=== PATIENT | female | born 1960 | race Caucasian/White ===

== ENCOUNTER 2021-11-23 08:42 | Day surgery (SDC) | payer MEDICARE, OTHER ==
[~2021-11-23] VITALS: Ht 165.1 cm; Wt 58.2 kg
[2021-11-23] VITALS (8 sets, daily range): BP systolic 108–122; BP diastolic 48–70; PULSE 104–128; TEMP 97.2–97.5
[~2021-11-23 08:42] MED LIST: BUSPAR10 MG PO; CARAFATE 1GM1 G PO; MELATONIN5 M1 PO; NAPROSYN500 MG PO; OXYCONTIN 10MG10 MG PO; PRIL40 PO; TENORMIN 5050 MG/TAB PO; THEO-24 30300 MG/CAP PO; ZANTAC 150MG T150 MG PO; ZOCOR 10MG10 MG PO; ZOFRAN8 MG PO
[2021-11-23 10:03] LABS: ALBUMIN 3.1 gm/dL (3.4-4.8); CALCIUM 10.6 mg/dL (8.4-10.2); CREATININE, serum 0.71 mg/dL (0.57-1.11); POTASSIUM 3.4 mmol/L (3.5-4.5)
[2021-11-23] MEDS ORDERED: LORTABELIX PO (11:32)
--- NOTE | 2021-11-23 11:52 | NUR ---
Patient returns to room 6 per cart from PACU per cart accompanied by Giana BEST and arouses to verbal stimui. IV fluids infusing. PEG tube noted to abdomen and is clamped. Dressing around the site is dry. Temp 97.2. Spouse in room. Siderails up x2 and call light in reach. Allowed to rest.
--- NOTE | 2021-11-23 12:07 | NUR ---
Continues to rest without complaints. Room air sats 96%.
--- NOTE | 2021-11-23 12:22 | NUR ---
Resting with eyes closed and not disturbed.
--- NOTE | 2021-11-23 12:22 | NUR ---
Spouse in room. Patient resting with eyes closed. Spouse states that she looks comfortable.
--- NOTE | 2021-11-23 12:37 | NUR ---
No changes. Dressing dry around the PEG tube site.
--- NOTE | 2021-11-23 13:22 | NUR ---
More awake now. IV discontinued and site is free of redness.
--- NOTE | 2021-11-23 13:45 | NUR ---
Supplies pulled and taught spouse how to give tube feeding and how to flush the PEG. Supplied with 60ml syringes, measuring glasses, med cups, and 4x4 drain sponges. Spouse demonstrates proper technique to adminster feedings.
--- NOTE | 2021-11-23 14:00 | NUR ---
Patient dressed and lifted into wheelchair by spouse. Taken to the vehicle by wheelchair and lifted into car by spouse. Dismissed to home driven by spouse with instructions in hand.
--- NOTE | 2021-11-23 14:09 | NUR ---
Mold Sander was consulted for patient in outpatient surgery to have PEG tub placed today. OTTO met with patient and patient's , Joshua (ph#[phone]) to discuss discharge planning. Patient has ALS and she is non verbal, however can respond to yes/no questions by either nodding or shaking her head. Patient lives in [place] with her and receives primary care at [facility]. Joshua is unsure patient's PCP name as he advised it changes so often. Joshua advised they have worked with RN-Cotton Grower, Navya Becker (ph#[phone]). Joshua is agreeable to have DME supplies ordered through [facility] if [facility] cannot provide these supplies. OTTO also discussed Home Health services and Joshua is agreeable to have referral sent to [facility] for nursing. Joshua declines PT/OT at this time and advised it has not been beneficial to patient in the past. Patient requires assistance with all ADLS which is provided by her family. Joshua briefly mentioned hospice services, but that they aren't ready to make that transition at this time. OTTO advised that the primary care team at [facility] can assist with that transition when he is ready and advised that hospice at home would be an option if that is what they desire. OTTO contacted [facility] Mendosa and left message. OTTO also contacted VESTA Alarcon at [facility] who advised they do not provide DME supplies. OTTO contacted Stephanie at [facility] and faxed referral information and orders for feeding supplies and formula. Stephanie confirmed she received all needed documentation and that supplies are ready for molded goods spot picker. OTTO contacted Olga at [facility] and faxed referral/discharge orders. Olga advised they would make contact with Joshua today. OTTO provided contact information for both [facility] and [facility] to Joshua and made sure address for [facility] was included. OTTO told Joshua that they would need to molded goods spot picker supplies at [facility] today after discharge. OTTO also provided Joshua with information about private duty services and explained that he could hire caregivers to assist at home as needed. OTTO provided the above update to Mishel Mcgee and NASIR Birch.
== END 2021-11-23 14:00 | disposition home or self-care (01) ==
LOC: SDCO 08:42
PROVIDERS: Surgery
DX: G12.21 Amyotrophic lateral sclerosis (principal); R13.10 Dysphagia, unspecified; F17.210 Nicotine dependence, cigarettes, uncomplicated
CPT/HCPCS: J2704; J3010; J7120